=== PATIENT | male | born 1950 | race Caucasian/White ===

== ENCOUNTER 2023-10-07 14:30 | Emergency (ER) | payer MEDICARE, OTHER, SELFPAY ==
[2023-10-07 14:42] VITALS: BP 157/107
[2023-10-07] MEDS: PEPCID 20 MG IV (15:19)
[2023-10-07] MEDS: DECADRON 10 MG IV (15:19)
[2023-10-07] MEDS: BENADRYL 25 MG IV (15:20)
--- NOTE | 2023-10-07 15:30 | ED.GENMED ---
History of Present Illness
General
Chief Complaint: Swelling
Source: patient and family
Time Seen by Provider: 10/07/23 15:01
Travel History
Have you had any contact with someone who has COVID-19?: No
Do you have any symptoms of coronavirus? Fever > 100 degrees, chills, cough, shortness of breath, sore throat, loss of taste or smell, muscle aches, or headache?: No
History of Present Illness
History of Present Illness:
73-year-old male who presents with lip swelling. The patient admits that it started this morning. He states he has been sick over the last few days and yesterday took Tylenol a few times last night and then today. He was wondering if he had
allergic reaction to acetaminophen. The patient states he is on lisinopril. Denies tongue swelling. Denies difficulty swallowing. Denies change in his voice. Patient states that it has been somewhat stable over the last 1 to 2 hours but
progressed through this morning.
Past History
Past History
ED Past Medical History: HTN and Hypercholesterolemia
Social History
Tobacco: Smoker
Phy Exam
Physical Exam
Physical Exam:
CONSTITUTIONAL Patient alert and oriented to person, place and time. Well-appearing. Vital signs reviewed.
HEAD atraumatic, normocephalic.
EYES eyelids normal to inspection, Extraocular muscles intact, Conjunctiva normal, Sclera normal.
ENT swelling of the lips noted, no pharyngeal swelling, no tongue swelling.
NECK normal range of motion, Trachea midline, no jugular venous distention.
RESPIRATORY CHEST No respiratory distress noted, Chest expansion equal, Bilateral breath sounds clear.
CARDIOVASCULAR regular rate and rhythm, Heart sounds normal.
BACK normal inspection, no obvious deformities
UPPER EXTREMITY range of motion normal, Motor strength normal, no cyanosis, no edema.
LOWER EXTREMITY range of motion normal, Motor strength normal, no cyanosis, no edema.
NEURO Speech normal, No focal motor deficits, Azam coma scale 15, Memory normal, Cranial Nerves intact to screening exam.
SKIN skin warm, dry, and normal in color.
PSYCHIATRIC patient oriented to person place and time, Normal affect.
Scores
Heart Failure Risk
Heart Failure Risk Score: Not Applicable
Course
Orders/Labs/Results
Orders:
Orders
10/07/23 15:11
Dexamethasone Sod Phosphate [Decadron] 10 mg IV NOW STA
Diphenhydramine [Benadryl] 25 mg IV NOW STA
Famotidine [Pepcid] 20 mg IV NOW STA
Vital Signs
Initial and Last Documented VS:
Initial Vital Signs
Temp Pulse Resp BP Pulse Ox
99.2 F 98 18 157/107 97
10/07/23 14:42 10/07/23 14:42 10/07/23 14:42 10/07/23 14:42 10/07/23 14:42
Last Documented Vital Signs
Temp Pulse Resp BP Pulse Ox
99.2 F 89 16 132/85 98
10/07/23 14:42 10/07/23 19:37 10/07/23 19:37 10/07/23 19:38 10/07/23 19:38
MDM/Problems Addressed
MDM/Problems Addressed:
Angioedema
*Pulse Oximetry
Patient hypoxic: no
*Critical Care Note
Total Time (30-74mins, 75-104mins- exclusive of procedures): 35 minutes
Data Reviewed
Source: patient and family
Patient Management
Escalation/DeEscalation of care consider admission/obs:
Patient reassessed several times. Much improved on reevaluation. Patient would like to go home and agrees to return for any progressive symptoms.
ED Attending Note
-
Portions of this chart may have been created with voice recognition software.� Occasional wrong word or��sound alike� substitutions may have occurred due to the inherent limitations of voice recognition software.
Discharge Plan
Departure
Patient Disposition: Home (Routine Discharge)
Date of Disposition: 10/07/23
Time of Disposition: 19:43
Patient with high blood pressure during this ER visit?: No
Discharge Problem:
Angioedema
Instructions: Angioedema
Prescriptions:
New
prednisone 10 mg Tablet
See Rx Instructions .ROUTE .COMPLEX Qty: 30 0RF
Rx Instructions:
Take By Mouth:
40 mg daily x3 days, 30 mg daily x3 days,
20 mg daily x3 days, 10 mg daily x3 days.
Referrals:
Alo Levy, [Family Provider] -
Activity Restrictions/Additional Instructions:
Please stop your lisinopril. Return immediately for increased swelling, tongue swelling, difficulty swallowing or any other concerns. Please see your doctor in the next 48 hours for follow-up and reevaluation
Interventions
Interventions:
*Risk Screen - Suicide Last Done: 10/07/23 15:26
*General Assessment Last Done: 10/07/23 14:42
*Neglect/Abuse Screening Last Done: 10/07/23 15:26
ED- Fall Risk Assessment Last Done: 10/07/23 15:26
*ED COVID-19 Vaccine History Last Done: 10/07/23 14:42
*Nursing Disposition Last Done: 10/07/23 19:46
ED- Cardiac Assessment Last Done: 10/07/23 15:26
ED- Pulmonary Assessment Last Done: 10/07/23 15:26
ED-Skin Assessment Last Done: 10/07/23 15:26
Discharge Date and Time
Discharge Date/Time: 10/07/23 19:46
Print Language: BOLIVIAN
[2023-10-07 15:52] VITALS: BP 138/78
[2023-10-07 17:56] VITALS: BP 122/74
[2023-10-07 19:37] VITALS: BP 118/69
[2023-10-07 19:38] VITALS: BP 132/85
== END 2023-10-07 19:46 | disposition home or self-care (01) ==
LOC: EMR 14:30
PROVIDERS: EMERGENCY PHYSICIAN Emergency Medicine; FAMILY PHYSICIAN Family Medicine
DX: T78.3XXA Angioneurotic edema, initial encounter (principal); X58.XXXA Exposure to other specified factors, initial encounter; I10 Essential (primary) hypertension; E78.00 Pure hypercholesterolemia, unspecified; F17.200 Nicotine dependence, unspecified, uncomplicated
CPT/HCPCS: 99282; 96374; 96375

== ENCOUNTER → 2024-02-13 06:36 | Day surgery (SDC) | payer MEDICARE, OTHER, SELFPAY | LOC: GI 06:36 | PROVIDERS: ATTENDING PHYSICIAN Internal Medicine Gastroenterology; FAMILY PHYSICIAN Family Medicine | DX: Z12.11 Encounter for screening for malignant neoplasm of colon (principal); D12.3 Benign neoplasm of transverse colon; K62.1 Rectal polyp; K57.30 Diverticulosis of large intestine without perforation or abscess without bleeding; K64.8 Other hemorrhoids; K31.89 Other diseases of stomach and duodenum; K44.9 Diaphragmatic hernia without obstruction or gangrene; R13.10 Dysphagia, unspecified | CPT/HCPCS: 45385; 45380; 46221; 43239; 88305; 88342 ==

== ENCOUNTER 2024-08-27 12:39 | Inpatient (IN) | payer MEDICARE, OTHER, SELFPAY ==
[2024-08-27] VITALS (24 sets, daily range): BP systolic 94–170; BP diastolic 66–96; BMI 24.4; BMI 22.3
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
[2024-08-27 08:57] LABS: % Basophils 0.5 % (0-2); % Eosinophils 0.7 % (0-6); % Immature Granulocytes 0.7 % (0-0.5); % Lymphocytes 15.9 % (20.5-51.1); % Monocytes 12.7 % (1.7-9.3); % Neutrophils 69.5 % (42.2-75.2); Absolute Basophils 0.1 10^3/uL (0-0.2); Absolute Eosinophils 0.1 10^3/uL (0-0.7); Absolute Immature Granulocytes 0.1 10^3/uL (0-0.05); Absolute Lymphocytes 2.5 10^3/uL (1.2-3.4); Absolute Neutrophils 11.1 10^3/uL (1.4-6.5); Hematocrit 36.4 % (39.0-52.0); Hemoglobin 12.5 g/dL (13.0-18.0); Mean Corp Hgb Conc. 34.3 g/dL (33.0-37.0); Mean Corpuscular Hgb 32.8 pg (27.0-31.0); Mean Corpuscular Volume 95.5 fL (80.0-94.0); Mean Platelet Volume 8.3 fL (7.4-10.4); Nucleated Red Blood Cells % 0 % (-); Platelet Count 300 10^3/uL (130-400); Red Blood Cell Count 3.81 10^6/uL (4.70-6.10); Red Cell Dist. Width 13.9 % (11.5-14.5); White Blood Cell Count 15.9 10^3/uL (4.8-10.8)
[2024-08-27 09:08] LABS: ALT (SGPT) 26 U/L (0-50); AST (SGOT) 36 U/L (17-59); Albumin 4.7 g/dl (3.5-5.0); Alkaline Phosphatase 59 U/L (38-126); Blood Urea Nitrogen 15 mg/dl (9-20); Calcium 9.7 mg/dl (8.4-10.2); Carbon Dioxide 27 mmol/L (22-30); Chloride 101 mmol/L (98-107); Estimated Creatinine Clearance 77 ml/min; Glucose 120 mg/dl (70-99); Potassium 3.8 mmol/L (3.5-5.1); Sodium 138 mmol/L (135-145); Total Bilirubin 0.4 mg/dl (0.2-1.3); eGFR > 60.00
[2024-08-27 09:19] LABS: Troponin I < 0.012 ng/ml
[2024-08-27 10:02] LABS: Alcohol None Detected
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
--- NOTE | 2024-08-27 12:15 | CON.INTV ---
Consultation
Consultation Request
Date/Time Consultation Requested: 12:15
Date/Time Consultation Performed: 12:15
Medical History
-
Chief Complaint: Syncope/fainting
History of Present Illness:
Patient is a 74-year-old male with past medical history of hypertension, hypercholesterolemia, GERD, anxiety, prostate hypertrophy, chronic alcoholic who presents to [facility] after being found unresponsive in his car in his neighbors yard.
Per family, last alcoholic drink was 3 days ago. Per family, patient drinks [id number], at least 15 drinks a day of beer. He has no history of DC, seizure, stroke. Patient states that he took his medications this morning. He takes
prophylactic aspirin 81 mg a day.
In the ED, CT head was negative for acute finding. Alcohol level were negative. EKG showed normal sinus rhythm. In the ED, there was raise concern for seizure versus alcohol withdrawal versus CVA. Vitals in the ER were blood pressure 113/71,
pulse of 84, respirations 18, pulse ox 97% on room air and afebrile.
Past medical history�hypertension, hypercholesterolemia, prostate hypertrophy, chronic alcohol use disorder, anxiety, erectile dysfunction
Past surgical history�cyst removal from back
Past Medical History
Past Medical History: Other (See above)
Past Surgical History: Other (See above)
Social History
Tobacco: Smoker
Alcohol: Chronic Alcoholic
Drug: None
Living: Alone
Family History
Family History: Reviewed & Not Pertinent
Allergies / Home Medications
Allergies
Allergy/AdvReac Type Severity Reaction Status Date / Time
No Known Allergies Allergy Unverified 10/07/23 14:46
Home Medications
�Medication �Instructions �Recorded �Confirmed �Last Taken �Type
alprazolam 0.5 mg tablet (Xanax) 0.5 mg PO BIDPRN PRN anxiety 08/27/24 08/27/24 Unknown History
amlodipine 5 mg tablet (Norvasc) 5 mg PO DAILY 08/27/24 08/27/24 Unknown History
aspirin 81 mg tablet,delayed 81 mg PO DAILY 08/27/24 08/27/24 Unknown History
release
atenolol 50 mg tablet 50 mg PO DAILY 08/27/24 08/27/24 Unknown History
finasteride 5 mg tablet 5 mg PO DAILY 08/27/24 08/27/24 Unknown History
omeprazole 40 mg capsule,delayed 40 mg PO DAILY 08/27/24 08/27/24 Unknown History
release
sildenafil 50 mg tablet 100 mg PO DAILYPRN PRN ed 08/27/24 08/27/24 Unknown History
simvastatin 20 mg tablet (Zocor) 20 mg PO DAILY 08/27/24 08/27/24 Unknown History
therapeutic multivitamin 1 tab PO DAILY 08/27/24 08/27/24 Unknown History
Review of Systems
-
Unable to Obtain full review of systems at this time due to: Acuity (Postictal)
History Source: Patient
Constitutional: Fatigue
Vitals / Labs / Diagnostic Testing
Vital Signs
Temp Pulse Resp BP Pulse Ox
98.1 F 84 18 113/71 97
08/27/24 08:34 08/27/24 10:00 08/27/24 08:35 08/27/24 08:33 08/27/24 10:00
Lab Data
08/27/24 08:47
08/27/24 08:47
Diagnostic Testing:
Physical Exam
-
HEENT: Normocephalic, Anicteric and Moist Mucous Membranes
Cardiovascular: S1/S2 and Regular Rhythm
Respiratory: Clear
GI: Soft and Non Distended
Neurology: Awake, Alert and Oriented
Skin: Warm and Dry
General: Comfortable
Assessment
-
74-year-old male with past medical history of hypertension, hypercholesterolemia, prostate hypertrophy and chronic alcohol use currently being managed in the ICU for concern of CVA versus alcohol withdrawal versus seizure.
Last 24 hours:
� Admit to ICU
� Consult neurology
� CT head negative for bleed
� Consider EEG, brain MRI
�White blood cell count 15.9, hemoglobin 12.5, platelet count 300. Sodium 138, potassium 3.8, BUN 15, creatinine 0.9. Glucose 120
#CVA versus alcohol withdrawal versus seizure
#Hyperlipidemia
#Hypertension
#Anxiety
#BPH
#GERD
� Admit to ICU
� N.p.o.
� Consult speech/PT/OT
� Consult neurology
� CT head negative. Alcohol level negative.
� EKG normal sinus rhythm
� Patient given 4 mg of Ativan in ED
� Start patient on MSAS protocol
Full code
Data Reviewed
-
CT Scan: Report reviewed by me and Discussed with Physician
Labs: Labs reviewed by me and Discussed with Physician
Old Records: Reviewed
[2024-08-27] MEDS: ATIVAN 1 MG IV ×2 (12:33→12:37)
[2024-08-27] MEDS: ATIVAN 2 MG IV (12:37)
[2024-08-27] MEDS: PHENOBARBITAL 104 MG IV (13:51)
--- NOTE | 2024-08-27 13:55 | PTCARENOTE ---
Phenobarbital 260 mg IV given per md order. Pt resting. No changes in assessment. Labs sent as ordered
[2024-08-27 13:57] LABS: Creatine Phosphokinase 350 U/L (55-170); Magnesium 2.1 mg/dl (1.6-2.3); Phosphorus 2.9 mg/dl (2.5-4.5)
--- NOTE | 2024-08-27 14:30 | PTCARENOTE ---
Rec'd pt at 1345 resting in bed. Drowsy but arousable. Overall oriented. Still a little foggy as to the events that brought him to the hospital but was able to say that he passed out in his car. Speech is slow but clear. GABRIEL at 2mm. Admits to a
dull frontal headache. MALONEY. Smile is even and tongue is midline. No tremors noted and MSAS is a 1. Skin is pink wm and dry. Respirs are unlabored on RA with sats of 97%. BS are clear. Monitor SR with 1st'avb AR .22-.24 + pulses. No edema. VS as
documented. Denies chest pain. Abd is soft with + BS. Voiding yellow urine in the urinal. Capped ints intact LAC and R forearm. Pt able to help with turning and moving but will fall back to sleep easily. Call jamison in reach and family at the bedside
and updated on plan of care. Labs and UDS sent as ordered.
[2024-08-27] MEDS: KEPPRA 1000 MG IV (15:04)
--- NOTE | 2024-08-27 15:05 | PTCARENOTE ---
Keppra 1000mg IV given per mD order
[2024-08-27 15:41] LABS: Amphetamines Negative (Negative); Barbiturates Negative (Negative); Benzodiazepines Positive (Negative); Buprenorphine Negative (Negative); Cocaine Negative (Negative); Marijuana Positive (Negative); Methadone Negative (Negative); Methamphetamines Negative (Negative); Opiates Negative (Negative); Phencyclidine Negative (Negative); Tricyclic Antidepressants Negative (Negative)
[2024-08-27] MEDS: FOLVITE 50.2 MG IV (15:53)
[2024-08-27] MEDS: FOLVITE PO (15:53)
[2024-08-27] MEDS: THIAMINE INJECTION 200 MG IV (15:53)
[2024-08-27 15:55] LABS: Fentanyl, Urine Negative (Negative)
--- NOTE | 2024-08-27 16:29 | PTCARENOTE ---
Assessment overall is unchanged. Sleepy but easily arousable and overall oriented. Of note. R pupil is miniimally smaller than than the L 1.5 on the R , 2mm on the L. MALONEY. Denies dizziness or increase in headache. Speech is clear. Upper lip is sl
swollen. Lungs are clear. Family at the bedside. Folvite 1mg IV given as will keep pt NPO per speech. Call jamison in reach. updated
[2024-08-27 16:54] LABS: Magnesium 2.2 mg/dl (1.6-2.3)
[2024-08-27 17:15] LABS: Urine Albumin 2+ (Neg - Trace); Urine Bilirubin Negative (Negative); Urine Character Clear (Clear); Urine Color Yellow; Urine Glucose Negative (Negative); Urine Ketone Negative (Negative); Urine Leukocyte 1+ (Negative); Urine Nitrite Negative (Negative); Urine Occult Blood 1+ (Negative); Urine Urobilinogen Negative (Neg - 1+); Urine pH 6.5 (5.0-9.0)
[2024-08-27] MEDS: LOVENOX 40 MG SC (17:34)
[2024-08-27 17:40] LABS: Urine Squamous Cell 0-2 /LPF (Few)
[2024-08-27 17:41] LABS: Urine Bacteria Few (Negative); Urine Red Blood Cell 0-2 /HPF (0-2)
--- NOTE | 2024-08-27 18:20 | PTCARENOTE ---
Dozing unless disturbed. Does easily awaken and is appropriate. No changes in assessment. UA sent earlier. No complaints
[2024-08-27 18:30] LABS: Glucose - Point of Care 93 mg/dl (70-99)
[2024-08-27 18:32] LABS: TSH Reflex To Free T4 0.62 uIU/ml (0.47-4.68)
[2024-08-27 19:07] LABS: Folate > 20.0 ng/ml (2.76-20); Vitamin B12 939 pg/ml (239-931)
--- NOTE | 2024-08-27 19:25 | PTCARENOTE ---
Pt received start of shift, HR SR w/ 1st degree AVB on telemetry. Pt AAOx3. Drowsy, but easily aroused. Neuro intact, no deficits. MSAS 0. RA, SpO2 96%. Updated pt on plan of care, pt verbalizes understanding.
[2024-08-27] MEDS: KEPPRA 500 MG IV (20:02)
[2024-08-27] MEDS: PHENOBARBITAL 97.5 MG IV (21:30)
[2024-08-28] VITALS (18 sets, daily range): BP systolic 84–130; BP diastolic 66–92; BMI 22.3; BMI 22.4
[2024-08-28] MEDS: THIAMINE INJECTION 200 MG IV ×4 (00:02→23:34)
--- NOTE | 2024-08-28 01:53 | PTCARENOTE ---
Pt continues to be drowsy but easily aroused. Neuro remains intact. MSAS 0. Pleasant demeanor, cooperative
[2024-08-28 03:22] LABS: % Basophils 0.5 % (0-2); % Eosinophils 1.6 % (0-6); % Immature Granulocytes 0.3 % (0-0.5); % Lymphocytes 28.4 % (20.5-51.1); % Monocytes 9.4 % (1.7-9.3); % Neutrophils 59.8 % (42.2-75.2); Absolute Basophils 0.1 10^3/uL (0-0.2); Absolute Eosinophils 0.2 10^3/uL (0-0.7); Absolute Lymphocytes 3.4 10^3/uL (1.2-3.4); Absolute Monocytes 1.1 10^3/uL (0.1-0.6); Absolute Neutrophils 7.1 10^3/uL (1.4-6.5); Hematocrit 36.4 % (39.0-52.0); Hemoglobin 12.5 g/dL (13.0-18.0); Mean Corp Hgb Conc. 34.3 g/dL (33.0-37.0); Mean Corpuscular Hgb 32.7 pg (27.0-31.0); Mean Corpuscular Volume 95.3 fL (80.0-94.0); Nucleated Red Blood Cells % 0 % (-); Platelet Count 257 10^3/uL (130-400); Red Blood Cell Count 3.82 10^6/uL (4.70-6.10); Red Cell Dist. Width 13.8 % (11.5-14.5); White Blood Cell Count 11.9 10^3/uL (4.8-10.8)
[2024-08-28 03:43] LABS: ALT (SGPT) 24 U/L (0-50); AST (SGOT) 40 U/L (17-59); Albumin 4.5 g/dl (3.5-5.0); Alkaline Phosphatase 63 U/L (38-126); Blood Urea Nitrogen 14 mg/dl (9-20); Calcium 9.2 mg/dl (8.4-10.2); Carbon Dioxide 25 mmol/L (22-30); Chloride 102 mmol/L (98-107); Estimated Creatinine Clearance 83 ml/min; Glucose 85 mg/dl (70-99); Magnesium 2.4 mg/dl (1.6-2.3); Sodium 136 mmol/L (135-145); Total Bilirubin 0.8 mg/dl (0.2-1.3); Total Protein 6.9 g/dl (6.3-8.2); eGFR > 60.00
[2024-08-28 03:53] LABS: Creatine Phosphokinase 701 U/L (55-170)
[2024-08-28] MEDS: KEPPRA 500 MG IV ×2 (08:04→19:58)
[2024-08-28] MEDS: PHENOBARBITAL 97.5 MG IV ×3 (08:05→23:34)
--- NOTE | 2024-08-28 08:21 | W.PN.INTV ---
Today's Communication / Plan
Recommendations
EEG today
Assessment
-
74-year-old male with past medical history of hypertension, hypercholesterolemia, prostate hypertrophy and chronic alcohol use currently being managed in the ICU for concern of CVA versus alcohol withdrawal versus seizure.
Last 24 hours:
� Admit to ICU
� EEG today
� CT head negative for bleed. MRI brain pending
� U tox positive for benzodiazepines and marijuana. Patient takes Xanax at home for anxiety
�White blood cell count 11.9, hemoglobin 12.5, platelet count 300. Sodium 136, potassium 4, BUN 14, creatinine 0.8. Glucose 93
#CVA versus alcohol withdrawal versus seizure
#Hyperlipidemia
#Hypertension
#Anxiety
#BPH
#GERD
� Admit to ICU
� N.p.o.
� Consult speech/PT/OT
� Neurology on board, appreciate input
� CT head negative. Alcohol level negative.
� EKG normal sinus rhythm
� Patient given 4 mg of Ativan in ED
� Start patient on MSAS protocol
�Patient started on Keppra
� Brain MRI pending
� EEG today
� Repeat electrolytes as needed.
�U tox positive for benzodiazepines and marijuana patient takes Xanax at home for his anxiety
Full code
Subjective Dataa
Subjective Data
Date of Service:
Date of Service: August 28, 2024
Patient reports no acute events overnight. He states that he does not remember parts of yesterday. He feels 'more like himself 'and acknowledges that he was drinking significantly leading up to the episode. Patient has no headaches, nausea,
vomiting, chest pain, shortness of breath, abdominal pain or numbness and tingling. He is resting comfortably in bed, about to undergo EEG testing
Vitals today 109/74, pulse 62, respirations 16, afebrile saturating 96% on on room air.
Chief Complaint: Felter Tennis Balls Follow Up
Review of Systems
Neuro: Other (Seizure)
Objective Data
Data Reviewed
Vital Signs / I&O / Oxygen:
Vital Signs
Temp Pulse Resp BP Pulse Ox
97.5 F 62 16 109/74 96
08/28/24 03:37 08/28/24 06:45 08/28/24 06:45 08/28/24 06:00 08/28/24 06:45
Intake and Output
08/27/24 08/28/24 08/29/24
06:59 06:59 06:59
Intake Total 150 / 150
Output Total 600 / 600
Balance -450 / -450
SaO2 96
Physical Exam
General: Comfortable
HEENT: Normocephalic and Anicteric
Cardiovascular: S1-S2 and Regular Rhythm
Respiratory: Clear
GI: Soft and Non Distended
Neurology: AO x 3
Skin: Warm and Dry
Labs/Micro/Reports
Lab Data
08/28/24 03:14
08/28/24 03:14
--- NOTE | 2024-08-28 08:55 | PTCARENOTE ---
pt received from previous rn- aox3, knows month and says year is 2023- reoriented to correct year. pt repositions and turns self. eeg completed at bedside. pt educated about plan of care- verbalized understanding. nsr with 1st degree on monitor, on
room air. no complaints at this time. all safety precautions in place, call jamison within reach, demonstrated proper use.
[2024-08-28] MEDS: PROTONIX 40 MG PO (09:15)
[2024-08-28] MEDS: THERAGRAN 1 TABLET PO (09:15)
[2024-08-28] MEDS: FOLVITE 1 MG PO (09:15)
[2024-08-28] MEDS: ASPIR LOW (ENTERIC COATED) 81 MG PO (09:15)
[2024-08-28] MEDS: LIPITOR 10 MG PO (09:15)
[2024-08-28] MEDS: TENORMIN 50 MG PO (09:15)
[2024-08-28] MEDS: PROSCAR 5 MG PO (09:16)
--- NOTE | 2024-08-28 09:38 | W.PN.NEURO.1 ---
Today's Communication / Plan
-
.
Subjective/Objective
Subjective Data
Date of Service: August 28, 2024
Neurology follow-up note.
History Black reports no complaints. No recurrent seizures.
Routine EEG (08/28/2024)�normal.
Brain MRI is pending.
MAR: Phenobarbital 97.5
Labs: CK�701, urine tox�positive for THC, UA culture�pending
PMH: HTN, DLP, GERD, IBS, CARLOS, alcohol use disorder, ED, BPH, elevated PSA
PSH: hemorrhoidal banding
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
FH: Noncontributory.
All: Lisinopril
ROS: Negative for headache, chest pain, shortness of breath, positive for confusion.
General: Well developed. In no acute distress.
Cardio: Regular rate and rhythm without murmur. Extremities are without cyanosis or edema.
Neuro:
Mental Status: Alert, oriented to name, month, did not know the year. Impaired attention and preserved comprehension. Nonfluent.
Cranial Nerves: Pupils are equally round and reactive to light. EOMs full. Visual pemberton full to confrontation. No ptosis. No nystagmus. V1-V3 intact to light touch and pinprick bilaterally, symmetric. Face symmetric. Normal hearing AU. The
palate elevated well. SCMs and traps 5/5. Tongue midline. No dysarthria.
Motor: Normal bulk and tone. No pronator or arm drift. Strength 5/5 throughout. No clonus.
Reflexes: 2+ throughout the upper extremities and knees. Plantar responses flexor bilaterally.
Sensory: Absent vibration at the toes and reduced at the ankles.
Coordination: No dysmetria or tremor.
Gait: deferred
Assessment and Plan:
I. Acute symptomatic seizures from alcohol cessation
II. Encephalopathy (toxic, neurodegenerative?)
III. Alcohol use disorder
-Seizure precautions
-Brain MRI without carlos
-Continue Keppra 500 mg twice daily
-Ativan 2 mg as needed
-Will follow
I personally reviewed all radiology and labs along with past medical records pertinent to current medical problems. Total time spent in patient care is 36 minutes.
Thank you for allowing us to participate in the care of this patient. We will continue to follow. Please do not hesitate to contact us with any questions or concerns.
Objective Data
Vital Signs
Temp Pulse Resp BP Pulse Ox
36.6 C 72 15 117/87 94
08/28/24 08:31 08/28/24 09:15 08/28/24 08:00 08/28/24 09:15 08/28/24 08:00
Lab Results
08/28/24 03:14
08/28/24 03:14
Sodium 136 mmol/L (135-145) 08/28/24 03:14
Potassium 4.0 mmol/L (3.5-5.1) 08/28/24 03:14
BUN 14 mg/dl (9-20) 08/28/24 03:14
Glucose 85 mg/dl (70-99) 08/28/24 03:14
Calcium 9.2 mg/dl (8.4-10.2) 08/28/24 03:14
Phosphorus 2.9 mg/dl (2.5-4.5) 08/27/24 13:21
Vitamin B12 939 pg/ml (239-931) H 08/27/24 16:05
Ur Buprenorphine Negative (Negative) 08/27/24 13:44
Patient Allergies
No Known Allergies Allergy (Unverified 10/07/23 14:46)
Vital Signs and Labs
-
Vital Signs and Labs:
Vital Signs
Temp Pulse Resp BP Pulse Ox
36.6 C 72 15 117/87 94
08/28/24 08:31 08/28/24 09:15 08/28/24 08:00 08/28/24 09:15 08/28/24 08:00
Lab Results
08/28/24 03:14
08/28/24 03:14
Sodium 136 mmol/L (135-145) 08/28/24 03:14
Potassium 4.0 mmol/L (3.5-5.1) 08/28/24 03:14
BUN 14 mg/dl (9-20) 08/28/24 03:14
Glucose 85 mg/dl (70-99) 08/28/24 03:14
Calcium 9.2 mg/dl (8.4-10.2) 08/28/24 03:14
Phosphorus 2.9 mg/dl (2.5-4.5) 08/27/24 13:21
Vitamin B12 939 pg/ml (239-931) H 08/27/24 16:05
Ur Buprenorphine Negative (Negative) 08/27/24 13:44
Medications
-
Medications:
Generic Name Dose Route Start Last Admin
Trade Name Freq PRN Reason Stop Dose Admin
Aspirin 81 mg 08/28/24 08:00 08/28/24 09:15
Aspirin 81 Mg (Enteric Coated) Tablet PO 09/25/24 07:59 81 mg
DAILY FOREIGN Administration
Atenolol 50 mg 08/28/24 08:00 08/28/24 09:15
Atenolol 50 Mg Tablet PO 09/25/24 07:59 50 mg
DAILY FOREIGN Administration
Atorvastatin Calcium 10 mg 08/28/24 08:00 08/28/24 09:15
Atorvastatin (Lipitor) 10 Mg Tablet PO 09/25/24 07:59 10 mg
DAILY FOREIGN Administration
Bisacodyl 10 mg 08/27/24 13:13
Bisacodyl 10 Mg Rectal Suppository RECTAL 09/24/24 13:12
[id number] PRN
constipation
Enoxaparin Sodium 40 mg 08/27/24 18:00 08/27/24 17:34
Enoxaparin Sodium 40 Mg/0.4 Ml Syringe SC 09/24/24 17:59 40 mg
QPM FOREIGN Administration
Finasteride 5 mg 08/28/24 08:00 08/28/24 09:16
Finasteride 5 Mg Tablet PO 09/25/24 07:59 5 mg
DAILY FOREIGN Administration
Folic Acid 1 mg 08/27/24 13:13 08/28/24 09:15
Folic Acid 1 Mg Tablet PO 09/24/24 13:12 1 mg
DAILY FOREIGN Administration
Folic Acid 1 mg/ Sodium 50.2 mls @ 200.8 mls/hr 08/27/24 13:13 08/27/24 15:53
Chloride IV 09/24/24 13:12 50.2 mls
DAILYPRN PRN Administration
if NPO
Levetiracetam 500 mg 08/27/24 20:00 08/28/24 08:04
Levetiracetam (100 Mg/Ml) 500 Mg/5 Ml Vial IV 09/24/24 19:59 500 mg
Q12 FOREIGN Administration
Lorazepam 1 mg 08/27/24 13:13
Lorazepam 1 Mg Tablet PO 09/24/24 13:12
Q2HPRN PRN
MSAS 5-7
Lorazepam 1 mg 08/27/24 13:13
Lorazepam 2 Mg/Ml Vial IV 09/24/24 13:12
Q1HPRN PRN
MSAS 8-11
Lorazepam 2 mg 08/27/24 13:13
Lorazepam 2 Mg/Ml Vial IV 09/24/24 13:12
Q1HPRN PRN
MSAS > 11
Multivitamins Therapeutic 1 tablet 08/28/24 08:00 08/28/24 09:15
Multivitamin Tablet PO 09/25/24 07:59 1 tablet
DAILY FOREIGN Administration
Pantoprazole Sodium 40 mg 08/28/24 08:00 08/28/24 09:15
Pantoprazole 40 Mg Delayed Release Tablet PO 09/25/24 07:59 40 mg
DAILY FOREIGN Administration
Phenobarbital Sodium 64.8 mg 08/29/24 22:00
Phenobarbital 32.4 Mg Tablet PO 08/31/24 16:01
TID FOREIGN
Phenobarbital Sodium 32.4 mg 08/31/24 22:00
Phenobarbital 32.4 Mg Tablet PO 09/02/24 16:01
TID FOREIGN
Phenobarbital Sodium 97.5 mg 08/27/24 22:00 08/28/24 08:05
Phenobarbital (65 Mg/Ml) 1 Ml Vial IV 08/29/24 16:01 97.5 mg
TID FOREIGN Administration
Polyethylene Glycol 17 grams 08/27/24 13:13
Polyethylene Glycol Powder 17 Grams Packet PO 09/24/24 13:12
DAILYPRN PRN
constipation
Senna/Docusate Sodium 1 tablet 08/27/24 13:13
Docusate W/Senna (Mehnaz-Colace) Tablet PO 09/24/24 13:12
BIDPRN PRN
constipation
Sodium Chloride 0 ml 08/27/24 13:13
Sodium Chloride 0.9% (Preservative Free) 10 Ml Vial IV 09/24/24 13:12
PRN PRN
To dilute IV Ativan
Protocol
Sodium Chloride 0 flush 08/27/24 14:00
Sodium Chloride 0.9% (Flush) Syringe IV 09/24/24 13:59
PER PROTOCOL FOREIGN
Thiamine HCl 200 mg 08/27/24 16:00 08/28/24 08:04
Thiamine (100 Mg/Ml) 2 Ml Vial IV 08/30/24 08:01 200 mg
Q8 FOREIGN Administration
Thiamine HCl 100 mg 08/30/24 20:00
Thiamine 100 Mg Tablet PO 09/27/24 19:59
BID FOREIGN
Home Medications
-
Home Medications
alprazolam 0.5 mg tablet (Xanax) 0.5 mg PO BIDPRN PRN anxiety 08/27/24
amlodipine 5 mg tablet (Norvasc) 5 mg PO DAILY 08/27/24
aspirin 81 mg tablet,delayed release 81 mg PO DAILY 08/27/24
atenolol 50 mg tablet 50 mg PO DAILY 08/27/24
finasteride 5 mg tablet 5 mg PO DAILY 08/27/24
omeprazole 40 mg capsule,delayed release 40 mg PO DAILY 08/27/24
sildenafil 50 mg tablet 100 mg PO DAILYPRN PRN ed 08/27/24
simvastatin 20 mg tablet (Zocor) 20 mg PO DAILY 08/27/24
therapeutic multivitamin 1 tab PO DAILY 08/27/24
--- NOTE | 2024-08-28 09:56 | PTOTSP ---
Dysphagia Evaluation
Oral/pharyngeal swallowing within functional limits at time of clinical bedside swallowing evaluation while patient awake/alert/calm. Patient may be at risk for fluctuations in dysphagia given alcohol withdrawal.
Recommend:
1. Regular, Thin Liquids
2. Medications as best tolerated
3. Oral care 3x daily
4. General aspiration and reflux precautions
5. Will follow up for speech/language/cognitive evaluation pending results of MRI of Brain.
--- NOTE | 2024-08-28 10:30 | EEGC.RPT ---
Continuous EEG Report
Recording
Start Date of Data Reviewed: 08/28/24
Done with Video Recording: Yes
Electrocardiogram: Unremarkable
Report
TECHNICAL REMARKS: This is a technically satisfactory eighteen channel record employing 21 disc electrodes applied according to a measured international 10-20 electrode placement system. There were no significant technical difficulties. The study
was done on a BCKSTGR System.
CLINICAL HISTORY: This is a 74-year-old man with recurrent seizures. This study was requested to look for epileptiform abnormalities.
MEDICATION: Keppra, phenobarbital
STUDY DURATION: 27 min, 1 sec
REPORT: At the onset of the EEG, the patient is awake. The background activity consists of 9.5-10-11 Hz, persistent, posteriorly dominant, moderate amplitude, symmetric and rhythmic activity that is reactive to eye-opening. Anteriorly, it consists
of a mixture of low voltage indeterminate activity and 20-25 Hz, persistent, low amplitude, symmetric and rhythmic activity. Stepwise intermittent photic stimulation (1-31 Hz) does not induce any abnormalities. Hyperventilation was not performed.
Drowsiness is characterized by low amplitude mixed frequency activity, decreased eye blinking, and muscle artifact. N2 sleep was reached
IMPRESSION: This is a normal awake and sleep EEG. There is no evidence of focal slowing or epileptiform activity. A normal EEG does not rule out epilepsy. If the clinical picture warrants, a sleep-deprived awake and sleep record may be helpful.
--- NOTE | 2024-08-28 11:05 | PTCARENOTE ---
pt off floor at 1040 with supercharge repair supervisor for mri, daughter at bedside and updated
--- NOTE | 2024-08-28 11:35 | CM ---
CM following re: discharge planning.
Reviewed pt's chart, met with pt and pt's daughter at bedside. Pt allowed her daughter to be presented in the interview.
Pt is a 74 year old male, admitted with primary dx of Acute symptomatic seizures from alcohol cessation. Encephalopathy, Alcohol use disorder.
Pt reports he lives with spouse 2SH, 2 steps to enter, has 3 supportive children and helping babysitting grandchildren. 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 No DME, VN or SNF history.
Pt admitted to h/o alcohol abuse, drink of choice - beer and per pt he can drink heavily at some days and not drinking at all when chooses. Pt expressed his agreement to meet with [facility] team for more information regarding D&A treatment options. A
referral to [facility] made.
PCP: Alo Levy
Pharmacy: [facility]
D/C plan: Inpatient vs outpatient D&A treatment programs. [facility] following.
CM will follow with discharge plan updates as hospitalization progresses
--- NOTE | 2024-08-28 12:32 | PTCARENOTE ---
assessment unchanged, pt oob to chair. neuro checks d/c per Dr. Barros.
--- NOTE | 2024-08-28 14:34 | W.PN.HOSP.TC ---
Today's Communication/Plan
-
See plan
Assessment / Plan
Assessment / Plan
Physical Exam
General: No Apparent Distress, Comfortable and Conversant
HEENT: Normocephalic and Moist mucous membranes
Respiratory: Clear
Cardiac: S1/S2 and Regular Rhythm
GI: Soft, Non Tender and Normal Bowel Sounds
Musculoskeletal: No Cyanosis and No Edema
Skin: Warm and Dry
Neuro: Awake, Alert, Oriented, AO x 3, No Motor Deficits, Nonfocal/grossly intact, Cranial Nerves Intact and No Sensory Deficits
Psych: Calm and Intact Judgment/Insight
Assessment/Plan
Presentation with Unresponsiveness/Eye Staring/Head Shaking Likely Secondary to Alcohol Withdrawal Seizures
Seizures -- one here in the emergency department and one suspected one prior to arrival
Suspected Delirium Tremens
-Suspected alcohol withdrawal seizure
-Ativan 4 mg given in the emergency department with good response, repeat every 15 to 20 minutes as needed
-Intravenous Phenobarbital taper regimen ordered
-ICU admission given high risk of needing intubation --> today is doing better and stable, okay for transfer to telemetry as discussed with production technician
-Neurology consulted given 2nd suspected second episode of seizure on day of presentation, to check for any other possible etiology
-MRI brain with no acute changes or significant abnormalities
-EEG normal
-Per neurology, continue Keppra 500 mg twice daily and Ativan 2 mg as needed
-Patient says he takes Xanax everyday
Alcohol Use Disorder
-Patient drinks alcohol heavily, multiple cans of beer, and his last drink was 2-3 days ago
-Continue alcohol withdrawal protocol
-Thiamine
-Folic Acid
-Continue multivitamin
Leukocytosis - IMPROVED
-Possibly stress reaction from seizure
-No clear sign of infection, although patient's family reports that patient's grandchildren have had viral illness/cold lately, and they said that patient has had recent abdominal upset and diarrhea
History of Allergic Reaction to Lisinopril
Mild Rhabdomyolysis
-CK 350 --> 701
-Normal Saline IV fluids @ 100 cc/hr x1 bag
Hypertension
-Hold Amlodipine for now given blood pressure okay and patient is getting sedating meds
Hyperlipidemia
-Hold home statin for now, elevated CK
Prostate Hypertrophy
-Hold home Finasteride for now
-Bladder Scans
DVT Prophylaxis: Lovenox and SCDs
Code Status: Full Code
Alcohol withdrawal with concern for Delirium Tremens is a high-risk encounter.
Anticipated Discharge: > 48 hours
Subjective/Interval History
-
Date of Service: August 28, 2024
Patient was seen and examined. He was awake and alert and denied any symptoms or complaints.
Objective Data
-
Labs:
Laboratory Results
08/28/24
03:14
WBC 11.9 H
Hgb 12.5 L
Hct 36.4 L
Plt Count 257
Sodium 136
Potassium 4.0
Chloride 102
Carbon Dioxide 25
BUN 14
Creatinine 0.8
Glucose 85
Calcium 9.2
Total Bilirubin 0.8
AST 40
ALT 24
Alkaline Phosphatase 63
Vital Signs:
Vital Signs
Temp Pulse Resp BP Pulse Ox
97.9 F 66 17 107/79 97
08/28/24 08:31 08/28/24 13:00 08/28/24 13:00 08/28/24 13:00 08/28/24 10:00
I&O
08/27/24 08/28/24 08/29/24
06:59 06:59 06:59
Intake Total 150 / 150
Output Total 600 / 600
Balance -450 / -450
[2024-08-28] MEDS: NSS 1000 IV (15:12)
[2024-08-28] MEDS: AUGMENTIN 875 MG/125 MG 1 TABLET PO (17:03)
[2024-08-28] MEDS: NICODERM TRANSDERMAL 14 MG TRANSDERM (17:03)
[2024-08-28] MEDS: LOVENOX 40 MG SC (17:04)
--- NOTE | 2024-08-28 17:22 | PTCARENOTE ---
08/28- Patient transferred and oriented to unit without issue. AAOX3; telemetry #47, currently NSR. Patient denies any current needs as well.
[2024-08-28 18:39] LABS: B.E. 1.1 mmol/L; HCO3 25.1 mmol/L (21-28); O2 Saturation % 98.4 % (94-98); PCO2 37 mmHg (35-48); PO2 79 mmHg (83-108); pH 7.44 (7.35-7.45)
[2024-08-28 20:28] LABS: Ammonia < 9 umol/L (9-30)
[2024-08-29 03:30] VITALS: BP 130/75
[2024-08-29 07:00] VITALS: BP 130/77
--- NOTE | 2024-08-29 07:24 | W.PN.HOSP.TC ---
Today's Communication/Plan
-
Seizures this hospitalization
Continue phenobarbital taper for severe alcohol withdrawal
Assessment / Plan
Assessment / Plan
Physical Exam
General: No Apparent Distress, Comfortable and Conversant
HEENT: Normocephalic and Moist mucous membranes
Respiratory: Clear
Cardiac: S1/S2 and Regular Rhythm
GI: Soft, Non Tender and Normal Bowel Sounds
Musculoskeletal: No Cyanosis and No Edema
Skin: Warm and Dry
Neuro: Awake, Alert, Oriented, AO x 3, No Motor Deficits, Nonfocal/grossly intact, Cranial Nerves Intact and No Sensory Deficits
Psych: Calm and Intact Judgment/Insight
Assessment/Plan
Presentation with Unresponsiveness/Eye Staring/Head Shaking Likely Secondary to Alcohol Withdrawal Seizures
Seizures -- one here in the emergency department and one suspected one prior to arrival
Suspected Delirium Tremens
-Suspected alcohol withdrawal seizure
-Ativan 4 mg given in the emergency department with good response, repeat every 15 to 20 minutes as needed
-Intravenous Phenobarbital taper regimen ordered -- continue
-Initially, ICU admission given high risk of needing intubation --> then did better and was stable for transfer to telemetry as discussed with program manager
-Neurology consulted given 2nd suspected second episode of seizure on day of presentation, to check for any other possible etiology
-MRI brain with no acute changes or significant abnormalities
-EEG normal
-Per neurology, continue Keppra 500 mg twice daily and Ativan 2 mg as needed
-Patient says he takes Xanax everyday
Alcohol Use Disorder
-Patient drinks alcohol heavily, multiple cans of beer, and his last drink was 2-3 days ago
-Continue alcohol withdrawal protocol
-Thiamine
-Folic Acid
-Continue multivitamin
Leukocytosis - RESOLVED
-Possibly stress reaction from seizure
-No clear sign of infection, although patient's family reports that patient's grandchildren have had viral illness/cold lately, and they said that patient has had recent abdominal upset and diarrhea
History of Allergic Reaction to Lisinopril
Mild Rhabdomyolysis
-CK 350 --> 701 --> 391
-Normal Saline IV fluids @ 100 cc/hr x1 bag given
Hypertension
-Hold Amlodipine for now given blood pressure okay and patient is getting sedating meds
Hyperlipidemia
-Hold home statin for now, elevated CK
Prostate Hypertrophy
-Hold home Finasteride for now
-Bladder Scans
DVT Prophylaxis: Lovenox and SCDs
Code Status: Full Code
Alcohol withdrawal with concern for Delirium Tremens is a high-risk encounter.
Anticipated Discharge: > 48 hours
Subjective/Interval History
-
Date of Service: August 29, 2024
Patient was seen and examined. He denied any complaints.
Objective Data
-
Labs:
Laboratory Results
08/29/24
06:12
WBC Pending
Hgb Pending
Hct Pending
Plt Count Pending
Sodium Pending
Potassium Pending
Chloride Pending
Carbon Dioxide Pending
BUN Pending
Creatinine Pending
Glucose Pending
Calcium Pending
Total Bilirubin Pending
AST Pending
ALT Pending
Alkaline Phosphatase Pending
Vital Signs:
Vital Signs
Temp Pulse Resp BP Pulse Ox
97.5 F 76 18 130/75 97
08/29/24 03:30 08/29/24 03:30 08/29/24 03:30 08/29/24 03:30 08/29/24 03:30
I&O
08/28/24 08/29/24 08/30/24
06:59 06:59 06:59
Intake Total 150 / 150 1000 / 1000
Output Total 600 / 600 450 / 450
Balance -450 / -450 550 / 550
[2024-08-29 07:37] LABS: % Basophils 0.5 % (0-2); % Immature Granulocytes 0.3 % (0-0.5); % Lymphocytes 25.5 % (20.5-51.1); % Monocytes 11.3 % (1.7-9.3); % Neutrophils 60.4 % (42.2-75.2); Absolute Basophils 0.1 10^3/uL (0-0.2); Absolute Eosinophils 0.2 10^3/uL (0-0.7); Absolute Lymphocytes 2.4 10^3/uL (1.2-3.4); Absolute Monocytes 1.1 10^3/uL (0.1-0.6); Absolute Neutrophils 5.7 10^3/uL (1.4-6.5); Hematocrit 33.5 % (39.0-52.0); Hemoglobin 11.2 g/dL (13.0-18.0); Mean Corp Hgb Conc. 33.4 g/dL (33.0-37.0); Mean Corpuscular Hgb 31.7 pg (27.0-31.0); Mean Corpuscular Volume 94.9 fL (80.0-94.0); Mean Platelet Volume 8.5 fL (7.4-10.4); Nucleated Red Blood Cells % 0 % (-); Platelet Count 268 10^3/uL (130-400); Red Blood Cell Count 3.53 10^6/uL (4.70-6.10); Red Cell Dist. Width 13.5 % (11.5-14.5); White Blood Cell Count 9.4 10^3/uL (4.8-10.8)
[2024-08-29] MEDS: NICODERM TRANSDERMAL 14 MG TRANSDERM (08:12)
[2024-08-29] MEDS: FOLVITE 1 MG PO (08:13)
[2024-08-29] MEDS: THIAMINE INJECTION 200 MG IV ×2 (08:13→16:43)
[2024-08-29] MEDS: PHENOBARBITAL 97.5 MG IV ×2 (08:13→16:42)
[2024-08-29] MEDS: TENORMIN 50 MG PO (08:13)
[2024-08-29] MEDS: PROSCAR 5 MG PO (08:14)
[2024-08-29] MEDS: KEPPRA 500 MG IV ×2 (08:14→20:44)
[2024-08-29] MEDS: THERAGRAN 1 TABLET PO (08:14)
[2024-08-29] MEDS: AUGMENTIN 875 MG/125 MG 1 TABLET PO ×2 (08:14→20:43)
[2024-08-29] MEDS: ASPIR LOW (ENTERIC COATED) 81 MG PO (08:15)
[2024-08-29] MEDS: PROTONIX 40 MG PO (08:15)
[2024-08-29] MEDS: LIPITOR 10 MG PO (08:15)
[2024-08-29 08:17] LABS: ALT (SGPT) 18 U/L (0-50); AST (SGOT) 28 U/L (17-59); Albumin 3.4 g/dl (3.5-5.0); Alkaline Phosphatase 57 U/L (38-126); Blood Urea Nitrogen 11 mg/dl (9-20); Calcium 8.7 mg/dl (8.4-10.2); Carbon Dioxide 26 mmol/L (22-30); Chloride 103 mmol/L (98-107); Creatine Phosphokinase 391 U/L (55-170); Estimated Creatinine Clearance 96 ml/min; Glucose 80 mg/dl (70-99); Magnesium 1.8 mg/dl (1.6-2.3); Phosphorus 3.7 mg/dl (2.5-4.5); Potassium 3.9 mmol/L (3.5-5.1); Sodium 134 mmol/L (135-145); Total Bilirubin 0.5 mg/dl (0.2-1.3); Total Protein 5.7 g/dl (6.3-8.2); eGFR > 60.00
[2024-08-29 11:00] VITALS: BP 122/85
[2024-08-29 15:00] VITALS: BP 140/81
[2024-08-29] MEDS: LOVENOX 40 MG SC (17:33)
[2024-08-29 19:39] VITALS: BP 119/74
[2024-08-29] MEDS: LUMINAL 64.8 MG PO (20:43)
[2024-08-29] MEDS: FLUSH (NSS) 1 FLUSH IV (20:44)
[2024-08-29 23:50] VITALS: BP 120/76
[2024-08-30] MEDS: THIAMINE INJECTION 200 MG IV ×2 (00:12→09:20)
[2024-08-30] MEDS: FLUSH (NSS) 1 FLUSH IV ×2 (00:12→20:44)
[2024-08-30 03:27] VITALS: BP 129/83
[2024-08-30 06:00] VITALS: BMI 22.0
[2024-08-30 07:00] VITALS: BP 132/92
[2024-08-30 07:00] LABS: % Basophils 0.7 % (0-2); % Eosinophils 2.3 % (0-6); % Immature Granulocytes 0.3 % (0-0.5); % Lymphocytes 24.6 % (20.5-51.1); % Monocytes 10.9 % (1.7-9.3); % Neutrophils 61.2 % (42.2-75.2); Absolute Basophils 0.1 10^3/uL (0-0.2); Absolute Eosinophils 0.2 10^3/uL (0-0.7); Absolute Lymphocytes 2.2 10^3/uL (1.2-3.4); Absolute Neutrophils 5.4 10^3/uL (1.4-6.5); Hematocrit 35.1 % (39.0-52.0); Hemoglobin 12.2 g/dL (13.0-18.0); Mean Corp Hgb Conc. 34.8 g/dL (33.0-37.0); Mean Corpuscular Hgb 32.5 pg (27.0-31.0); Mean Corpuscular Volume 93.6 fL (80.0-94.0); Mean Platelet Volume 8.3 fL (7.4-10.4); Nucleated Red Blood Cells % 0 % (-); Platelet Count 271 10^3/uL (130-400); Red Blood Cell Count 3.75 10^6/uL (4.70-6.10); Red Cell Dist. Width 13.1 % (11.5-14.5); White Blood Cell Count 8.8 10^3/uL (4.8-10.8)
--- NOTE | 2024-08-30 07:02 | W.PN.HOSP.TC ---
Today's Communication/Plan
-
High Risk Alcohol Withdrawal with Seizures on Presentation
Continue Phenobarbital Taper
Assessment / Plan
Assessment / Plan
Physical Exam
General: No Apparent Distress, Comfortable and Conversant
HEENT: Normocephalic and Moist mucous membranes
Respiratory: Clear
Cardiac: S1/S2 and Regular Rhythm
GI: Soft, Non Tender and Normal Bowel Sounds
Musculoskeletal: No Cyanosis and No Edema
Skin: Warm and Dry
Neuro: Awake, Alert, Oriented, AO x 3, No Motor Deficits, Nonfocal/grossly intact, Cranial Nerves Intact and No Sensory Deficits
Psych: Calm and Intact Judgment/Insight
Assessment/Plan
Presentation with Unresponsiveness/Eye Staring/Head Shaking Likely Secondary to Alcohol Withdrawal Seizures
Seizures -- one here in the emergency department and one suspected one prior to arrival
Suspected Delirium Tremens
Chronic benzodiazepine use
-Suspected alcohol withdrawal seizure
-Ativan 4 mg given in the emergency department with good response, repeat every 15 to 20 minutes as needed
-Intravenous Phenobarbital taper regimen ordered -- continue
-Initially, ICU admission given high risk of needing intubation --> then did better and was stable for transfer to telemetry as discussed with manager advertising
-Neurology consulted given 2nd suspected second episode of seizure on day of presentation, to check for any other possible etiology
-MRI brain with no acute changes or significant abnormalities
-EEG normal
-Per neurology, continue Keppra 500 mg twice daily and Ativan 2 mg as needed
-Patient says he takes Xanax everyday
Alcohol Use Disorder
-Patient drinks alcohol heavily, multiple cans of beer, and his last drink was 2-3 days ago
-Continue alcohol withdrawal protocol
-Thiamine
-Folic Acid
-Multivitamin
RLL aspiration pneumonia
-Continue Augmentin
Leukocytosis - RESOLVED
-Possibly stress reaction from seizure vs. aspiration pneumonia
-No clear sign of infection, although patient's family reports that patient's grandchildren have had viral illness/cold lately, and they said that patient has had recent abdominal upset and diarrhea
Macrocytic Anemia
-Suspected from alcohol use
-Vitamin B12 level high
History of Allergic Reaction to Lisinopril
Mild Rhabdomyolysis due to seizures
-CK 350 --> 701 --> 391
-Normal Saline IV fluids previously given
Hypertension
-Hold Amlodipine for now given blood pressure okay and patient is getting sedating meds
Hyperlipidemia
-Hold home statin for now, elevated CK
Benign Prostatic Hypertrophy
-Hold home Finasteride for now
-Bladder Scans
DVT Prophylaxis: Lovenox and SCDs
Code Status: Full Code
Alcohol withdrawal with concern for Delirium Tremens is a high-risk encounter.
Anticipated Discharge: > 48 hours
Subjective/Interval History
-
Date of Service: August 30, 2024
Patient was seen and examined. He denied any new symptoms or complaints.
Objective Data
-
Labs:
Laboratory Results
08/30/24
06:34
WBC 8.8
Hgb 12.2 L
Hct 35.1 L
Plt Count 271
Sodium Pending
Potassium Pending
Chloride Pending
Carbon Dioxide Pending
BUN Pending
Creatinine Pending
Glucose Pending
Calcium Pending
Total Bilirubin Pending
AST Pending
ALT Pending
Alkaline Phosphatase Pending
Vital Signs:
Vital Signs
Temp Pulse Resp BP Pulse Ox
97.4 F 72 16 129/83 98
08/30/24 03:27 08/30/24 03:27 08/30/24 03:27 08/30/24 03:27 08/30/24 03:27
I&O
08/29/24 08/30/24 08/31/24
06:59 06:59 06:59
Intake Total 1000 / 1420 420 / 420
Output Total 450 / 900 450 / 450
Balance 550 / 520 -30 / -30
[2024-08-30 07:17] LABS: ALT (SGPT) 22 U/L (0-50); AST (SGOT) 31 U/L (17-59); Albumin 4.2 g/dl (3.5-5.0); Alkaline Phosphatase 68 U/L (38-126); Blood Urea Nitrogen 5 mg/dl (9-20); Calcium 9.5 mg/dl (8.4-10.2); Carbon Dioxide 27 mmol/L (22-30); Chloride 101 mmol/L (98-107); Estimated Creatinine Clearance 94 ml/min; Glucose 90 mg/dl (70-99); Magnesium 1.7 mg/dl (1.6-2.3); Potassium 4.6 mmol/L (3.5-5.1); Sodium 137 mmol/L (135-145); Total Bilirubin 0.5 mg/dl (0.2-1.3); Total Protein 6.6 g/dl (6.3-8.2); eGFR > 60.00
[2024-08-30] MEDS: PROTONIX 40 MG PO (09:20)
[2024-08-30] MEDS: TENORMIN 50 MG PO (09:20)
[2024-08-30] MEDS: AUGMENTIN 875 MG/125 MG 1 TABLET PO ×2 (09:22→20:40)
[2024-08-30] MEDS: LIPITOR 10 MG PO (09:23)
[2024-08-30] MEDS: ASPIR LOW (ENTERIC COATED) 81 MG PO (09:23)
[2024-08-30] MEDS: PROSCAR 5 MG PO (09:23)
[2024-08-30] MEDS: THERAGRAN 1 TABLET PO (09:23)
[2024-08-30] MEDS: KEPPRA 500 MG IV ×2 (09:23→20:43)
[2024-08-30] MEDS: NICODERM TRANSDERMAL 14 MG TRANSDERM (09:24)
[2024-08-30] MEDS: LUMINAL 64.8 MG PO ×3 (09:24→22:03)
[2024-08-30] MEDS: FOLVITE 1 MG PO (09:27)
[2024-08-30 11:00] VITALS: BP 128/83
[2024-08-30 15:00] VITALS: BP 112/65
[2024-08-30] MEDS: LOVENOX 40 MG SC (16:54)
[2024-08-30 19:50] VITALS: BP 116/70
[2024-08-30] MEDS: VITAMIN B1 100 MG PO (20:41)
[2024-08-30 21:40] LABS: Albumin 3.95 g/dL (3.75-5.01); Alpha 1 Globulin 0.37 g/dL (0.19-0.46); Alpha 2 Globulin 0.67 g/dL (0.48-1.05); SPEP IFE Reflex Not Done; Total Protein-Electrophoresis 6.8 g/dL (6.3-8.2)
[2024-08-30 23:24] VITALS: BP 126/80
[2024-08-31 03:40] VITALS: BP 125/85
[2024-08-31 07:00] VITALS: BP 139/95
[2024-08-31 07:48] LABS: % Basophils 0.9 % (0-2); % Immature Granulocytes 0.4 % (0-0.5); % Lymphocytes 25.1 % (20.5-51.1); % Monocytes 9.7 % (1.7-9.3); % Neutrophils 60.9 % (42.2-75.2); Absolute Basophils 0.1 10^3/uL (0-0.2); Absolute Eosinophils 0.3 10^3/uL (0-0.7); Absolute Lymphocytes 2.4 10^3/uL (1.2-3.4); Absolute Monocytes 0.9 10^3/uL (0.1-0.6); Absolute Neutrophils 5.7 10^3/uL (1.4-6.5); Hematocrit 36.5 % (39.0-52.0); Hemoglobin 12.4 g/dL (13.0-18.0); Mean Corpuscular Hgb 32.5 pg (27.0-31.0); Mean Corpuscular Volume 95.5 fL (80.0-94.0); Mean Platelet Volume 8.6 fL (7.4-10.4); Nucleated Red Blood Cells % 0 % (-); Platelet Count 296 10^3/uL (130-400); Red Blood Cell Count 3.82 10^6/uL (4.70-6.10); Red Cell Dist. Width 13.3 % (11.5-14.5); White Blood Cell Count 9.4 10^3/uL (4.8-10.8)
[2024-08-31 08:10] LABS: ALT (SGPT) 25 U/L (0-50); AST (SGOT) 31 U/L (17-59); Albumin 4.4 g/dl (3.5-5.0); Alkaline Phosphatase 63 U/L (38-126); Blood Urea Nitrogen 9 mg/dl (9-20); Calcium 9.4 mg/dl (8.4-10.2); Carbon Dioxide 26 mmol/L (22-30); Chloride 100 mmol/L (98-107); Estimated Creatinine Clearance 82 ml/min; Glucose 128 mg/dl (70-99); Magnesium 1.6 mg/dl (1.6-2.3); Sodium 137 mmol/L (135-145); Total Bilirubin 0.5 mg/dl (0.2-1.3); Total Protein 6.7 g/dl (6.3-8.2); eGFR > 60.00
[2024-08-31] MEDS: THERAGRAN 1 TABLET PO (09:16)
[2024-08-31] MEDS: TENORMIN 50 MG PO (09:17)
[2024-08-31] MEDS: PROTONIX 40 MG PO (09:17)
[2024-08-31] MEDS: LIPITOR 10 MG PO (09:17)
[2024-08-31] MEDS: NICODERM TRANSDERMAL 14 MG TRANSDERM (09:18)
[2024-08-31] MEDS: AUGMENTIN 875 MG/125 MG 1 TABLET PO ×2 (09:18→19:53)
[2024-08-31] MEDS: LUMINAL 64.8 MG PO ×2 (09:18→16:30)
[2024-08-31] MEDS: KEPPRA IV (09:19)
[2024-08-31] MEDS: ASPIR LOW (ENTERIC COATED) 81 MG PO (09:19)
[2024-08-31] MEDS: PROSCAR 5 MG PO (09:19)
[2024-08-31] MEDS: FOLVITE 1 MG PO (09:19)
[2024-08-31] MEDS: VITAMIN B1 PO (09:20)
--- NOTE | 2024-08-31 10:06 | W.PN.HOSP.TC ---
Today's Communication/Plan
-
d/w neurology today, c/w Keppra
Resume amlodipine
Assessment / Plan
Assessment / Plan
Physical Exam
General: No Apparent Distress, Comfortable and Conversant
HEENT: Normocephalic and Moist mucous membranes
Respiratory: Clear
Cardiac: S1/S2 and Regular Rhythm
GI: Soft, Non Tender and Normal Bowel Sounds
Musculoskeletal: No Cyanosis and No Edema
Skin: Warm and Dry
Neuro: Awake, Alert, Oriented, AO x 3, No Motor Deficits, gait is normal, no tremor.
Psych: Calm and Intact Judgment/Insight
Assessment/Plan
Presentation with Unresponsiveness/Eye Staring/Head Shaking Likely Secondary to Alcohol Withdrawal Seizures
Seizures -- one here in the emergency department and one suspected one prior to arrival
Suspected Delirium Tremens
Chronic benzodiazepine use
Stable, no sizures.
-Suspected alcohol withdrawal seizure
-Ativan 4 mg given in the emergency department with good response, repeat every 15 to 20 minutes as needed
-Intravenous Phenobarbital taper regimen ordered -- continue
-Initially, ICU admission given high risk of needing intubation --> then did better and was stable for transfer to telemetry as discussed with business services administrator
-Neurology consulted given 2nd suspected second episode of seizure on day of presentation, to check for any other possible etiology
-MRI brain with no acute changes or significant abnormalities
-EEG normal
-Per neurology, continue Keppra 500 mg twice daily and Ativan 2 mg as needed
I asked Dr Barros 08/31 if patient needs to c/w anti-seizure medication since seizures were alcohol withdraw seizure and she said to continue Keppra and leave that decision to OP follow up. .
-Patient says he takes Xanax everyday
#Alcohol Use Disorder
-Patient drinks alcohol heavily, multiple cans of beer, and his last drink was 2-3 days ago
-Continue alcohol withdrawal protocol
-Thiamine
-Folic Acid
-Multivitamin
RLL aspiration pneumonia
No cough, no hypoxia, stop Augmentin on 09/02
Leukocytosis - RESOLVED
#Macrocytic Anemia
-Suspected from alcohol use
-Vitamin B12 level high
#History of Allergic Reaction to Lisinopril
#Mild Rhabdomyolysis due to seizures
-CK 350 --> 701 --> 391
Normal renal fuction
-Normal Saline IV fluids previously given
# Hyponatremia, resolved
#Primary hypertension
SBP 139
c/w Atenolol
-Resume Amlodipine
#Hyperlipidemia
-Hold home statin for now, elevated CK, resume upon dc
#Benign Prostatic Hypertrophy
-on Finasteride for now
-Bladder Scans, no retention
DVT Prophylaxis: Lovenox and SCDs
Code Status: Full Code
Total time spent to see the pt, examine the pt, review data and lab results, discuss treatment plan with pt and nursing staff around 55 minutes
Anticipated Discharge: 24 - 48 hours
Subjective/Interval History
-
Date of Service: August 31, 2024
he is feeling well
No confusion, sometimes forgetful
No pain issues
Objective Data
-
Labs:
Laboratory Results
08/31/24
06:11
WBC 9.4
Hgb 12.4 L
Hct 36.5 L
Plt Count 296
Sodium 137
Potassium 4.0
Chloride 100
Carbon Dioxide 26
BUN 9
Creatinine 0.8
Glucose 128 H
Calcium 9.4
Total Bilirubin 0.5
AST 31
ALT 25
Alkaline Phosphatase 63
Vital Signs:
Vital Signs
Temp Pulse Resp BP Pulse Ox
97.9 F 80 18 139/65 94
08/31/24 07:00 08/31/24 09:17 08/31/24 07:00 08/31/24 09:17 08/31/24 07:00
I&O
08/30/24 08/31/24 09/01/24
06:59 06:59 06:59
Intake Total 420 / 420 960 / 960
Output Total 450 / 450
Balance -30 / -30 960 / 960
[2024-08-31] MEDS: NORVASC 5 MG PO (11:47)
[2024-08-31] MEDS: KEPPRA 500 MG PO ×2 (11:48→19:53)
[2024-08-31 15:00] VITALS: BP 108/77
[2024-08-31] MEDS: LOVENOX 40 MG SC (16:30)
[2024-08-31 19:47] VITALS: BP 128/79
[2024-08-31] MEDS: VITAMIN B1 100 MG PO (19:53)
[2024-08-31] MEDS: LUMINAL 32.4 MG PO (21:25)
[2024-08-31] MEDS: XANAX 0.5 MG PO (21:27)
[2024-08-31 23:21] VITALS: BP 123/88
[2024-09-01 03:26] VITALS: BP 119/81
[2024-09-01 07:00] VITALS: BP 127/89
[2024-09-01] MEDS: TENORMIN 50 MG PO (07:25)
[2024-09-01] MEDS: NICODERM TRANSDERMAL 14 MG TRANSDERM (07:26)
[2024-09-01] MEDS: PROSCAR 5 MG PO (07:26)
[2024-09-01] MEDS: LUMINAL 32.4 MG PO ×3 (07:26→21:30)
[2024-09-01] MEDS: PROTONIX 40 MG PO (07:27)
[2024-09-01] MEDS: VITAMIN B1 100 MG PO ×2 (07:27→19:47)
[2024-09-01] MEDS: NORVASC 5 MG PO (07:27)
[2024-09-01] MEDS: AUGMENTIN 875 MG/125 MG 1 TABLET PO ×2 (07:27→19:47)
[2024-09-01] MEDS: FOLVITE 1 MG PO (07:27)
[2024-09-01] MEDS: ASPIR LOW (ENTERIC COATED) 81 MG PO (07:28)
[2024-09-01] MEDS: LIPITOR 10 MG PO (07:28)
[2024-09-01] MEDS: KEPPRA 500 MG PO ×2 (07:28→19:47)
[2024-09-01] MEDS: THERAGRAN 1 TABLET PO (07:28)
--- NOTE | 2024-09-01 09:23 | W.PN.HOSP.TC ---
Today's Communication/Plan
-
dc planning
Pt wants to go to talk to telehealth case manager to go to rehab
Assessment / Plan
Assessment / Plan
Physical Exam
General: No Apparent Distress, Comfortable and Conversant
HEENT: Normocephalic and Moist mucous membranes
Respiratory: Clear
Cardiac: S1/S2 and Regular Rhythm
GI: Soft, Non Tender and Normal Bowel Sounds
Musculoskeletal: No Cyanosis and No Edema
Skin: Warm and Dry
Neuro: Awake, Alert, Oriented, AO x 3, No Motor Deficits, gait is normal, no tremor.
Psych: Calm and Intact Judgment/Insight
Assessment/Plan
Presentation with Unresponsiveness/Eye Staring/Head Shaking Likely Secondary to Alcohol Withdrawal Seizures
Seizures -- one here in the emergency department and one suspected one prior to arrival
Suspected Delirium Tremens
Chronic benzodiazepine use
Stable, no sizures.
-Suspected alcohol withdrawal seizure
-Ativan 4 mg given in the emergency department with good response, repeat every 15 to 20 minutes as needed
-Intravenous Phenobarbital taper regimen ordered -- continue
-Initially, ICU admission given high risk of needing intubation --> then did better and was stable for transfer to telemetry as discussed with jewel sorter
-Neurology consulted given 2nd suspected second episode of seizure on day of presentation, to check for any other possible etiology
-MRI brain with no acute changes or significant abnormalities
-EEG normal
-Per neurology, continue Keppra 500 mg twice daily and Ativan 2 mg as needed
I asked Dr Barros 08/31 if patient needs to c/w anti-seizure medication since seizures were alcohol withdraw seizure and she said to continue Keppra and leave that decision to OP follow up. .
-Patient says he takes Xanax everyday
#Alcohol Use Disorder
-Patient drinks alcohol heavily, multiple cans of beer, and his last drink was 2-3 days ago
-Continue alcohol withdrawal protocol
-Thiamine
-Folic Acid
-Multivitamin
RLL aspiration pneumonia
No cough, no hypoxia, stop Augmentin on 09/02
Leukocytosis - RESOLVED
#Macrocytic Anemia
-Suspected from alcohol use
-Vitamin B12 level high
#History of Allergic Reaction to Lisinopril
#Mild Rhabdomyolysis due to seizures
-CK 350 --> 701 --> 391
Normal renal fuction
-Normal Saline IV fluids previously given
# Hyponatremia, resolved
#Primary hypertension
SBP 139
c/w Atenolol
-Resume Amlodipine
#Hyperlipidemia
-Hold home statin for now, elevated CK, resume upon dc
#Benign Prostatic Hypertrophy
-on Finasteride for now
-Bladder Scans, no retention
DVT Prophylaxis: Lovenox and SCDs
Code Status: Full Code
Total time spent to see the pt, examine the pt, review data and lab results, discuss treatment plan with pt and nursing staff around 55 minutes
Anticipated Discharge: Within 24 hours
Subjective/Interval History
-
Date of Service: September 01, 2024
Feels much better , no pain issues
No worsening confusion
Objective Data
-
Vital Signs:
Vital Signs
Temp Pulse Resp BP Pulse Ox
97.7 F 88 18 127/89 97
09/01/24 07:00 09/01/24 07:25 09/01/24 07:00 09/01/24 07:25 09/01/24 07:00
I&O
08/31/24 09/01/24 09/02/24
06:59 06:59 06:59
Intake Total 960 / 960 220 / 220
Balance 960 / 960 220 / 220
--- NOTE | 2024-09-01 10:38 | CM ---
Addendum entered by Kristian Matta 09/01/24 15:15:
Per Ruel, patient is moving forward w/ inpatient treatment. Will need [facility] funding, patient's spouse will provide needed documentation to complete this.
Requesting for CM to send clinicals to [facility] as they have available beds. CM faxed clinicals to [phone].
CM to follow up w/ Ruel tomorrow for updates
Original Note:
Chart reviewed. Patient agreeable to [facility] assistance and coordination for IP D&A rehab. Per hospitalist, patient will be ready for d/c tomorrow.
CM spoke w/ Ruel/[facility] who stated he will come and see patient in the next hour to discuss and review a plan for d/c
Met w/ patient and daughter bedside to confirm [facility] will assist w/ d/c plan for IP rehab. Per daughter, she does have a list of a few places and can discuss w/ Ruel once he arrives.
Plan: IP or outpatient D&A treatment. [facility] following
[2024-09-01 11:00] VITALS: BP 123/83
[2024-09-01 15:00] VITALS: BP 134/87
[2024-09-01] MEDS: LOVENOX 40 MG SC (16:08)
[2024-09-01 19:37] VITALS: BP 140/85
[2024-09-01 23:30] VITALS: BP 135/80
[2024-09-02 07:00] VITALS: BP 141/97
[2024-09-02] MEDS: THERAGRAN 1 TABLET PO (07:49)
[2024-09-02] MEDS: ASPIR LOW (ENTERIC COATED) 81 MG PO (07:49)
[2024-09-02] MEDS: VITAMIN B1 100 MG PO (07:49)
[2024-09-02] MEDS: PROTONIX 40 MG PO (07:50)
[2024-09-02] MEDS: LIPITOR 10 MG PO (07:50)
[2024-09-02] MEDS: TENORMIN 50 MG PO (07:50)
[2024-09-02] MEDS: AUGMENTIN 875 MG/125 MG 1 TABLET PO (07:50)
[2024-09-02] MEDS: NORVASC 5 MG PO (07:50)
[2024-09-02] MEDS: KEPPRA 500 MG PO (07:50)
[2024-09-02] MEDS: FOLVITE 1 MG PO (07:51)
[2024-09-02] MEDS: PROSCAR 5 MG PO (07:51)
[2024-09-02] MEDS: NICODERM TRANSDERMAL 14 MG TRANSDERM (07:52)
[2024-09-02] MEDS: LUMINAL 32.4 MG PO (07:57)
--- NOTE | 2024-09-02 11:05 | W.PN.HOSP.TC ---
Today's Communication/Plan
-
discharge
Assessment / Plan
Assessment / Plan
Physical Exam
General: No Apparent Distress, Comfortable and Conversant
HEENT: Normocephalic and Moist mucous membranes
Respiratory: Clear
Cardiac: S1/S2 and Regular Rhythm
GI: Soft, Non Tender and Normal Bowel Sounds
Musculoskeletal: No Cyanosis and No Edema
Skin: Warm and Dry
Neuro: Awake, Alert, Oriented, AO x 3, No Motor Deficits, gait is normal, no tremor.
Psych: Calm and Intact Judgment/Insight
Assessment/Plan
Presentation with Unresponsiveness/Eye Staring/Head Shaking Likely Secondary to Alcohol Withdrawal Seizures
Seizures -- one here in the emergency department and one suspected one prior to arrival
Suspected Delirium Tremens
Chronic benzodiazepine use
Stable, no sizures.
Alcohol withdrawal seizure
No recurrent seizures. No tremor
-MRI brain with no acute changes or significant abnormalities
-EEG normal
-Per neurology, continue Keppra 500 mg twice daily and Ativan 2 mg as needed
I asked Dr Barros 08/31 if patient needs to c/w anti-seizure medication since seizures were alcohol withdraw seizure and she said to continue Keppra and leave that decision to OP follow up. .
-Patient feels he does not need Xanax at night.
#Alcohol Use Disorder
finished treatment with Phenobarbital.
-MSAS is 0 since 08/27.
-Thiamine
-Folic Acid
-Multivitamin
RLL aspiration pneumonia
No cough, no hypoxia, stop Augmentin on 09/02
Leukocytosis - RESOLVED
#Macrocytic Anemia
-From alcohol use
-Vitamin B12 level high
#History of Allergic Reaction to Lisinopril
#Mild Rhabdomyolysis due to seizures
-CK 350 --> 701 --> 391
Normal renal fuction
# Hyponatremia, resolved
#Primary hypertension
SBP 139
c/w Atenolol
-Resumed Amlodipine.
#Hyperlipidemia
-Hold home statin for now, elevated CK, resume upon dc
#Benign Prostatic Hypertrophy
-on Finasteride for now
-Bladder Scans, no retention
DVT Prophylaxis: Lovenox and SCDs
Code Status: Full Code
Discharge planning, discussed with patient and case manager specialist. Patient wants to go to rehab. industrial production manager is working with patient and to discharge to rehab. Will follow
Total discharge time spent to see the pt, examine the pt, review data and lab results, discuss discharge plan with pt and nursing staff around 69 minutes
Anticipated Discharge: Today
Subjective/Interval History
-
Date of Service: September 02, 2024
No chest pain
No abdominal pain
No sob
No confusion or tremor
Objective Data
-
Vital Signs:
Vital Signs
Temp Pulse Resp BP Pulse Ox
97.7 F 95 20 141/97 99
09/02/24 07:00 09/02/24 07:00 09/02/24 07:00 09/02/24 07:00 09/02/24 07:55
I&O
09/01/24 09/02/24 09/03/24
06:59 06:59 06:59
Intake Total 220 / 220 1140 / 1140
Balance 220 / 220 1140 / 1140
--- NOTE | 2024-09-02 12:52 | CM ---
Addendum entered by Ana Luisa Greene 09/02/24 13:59:
Patient accepted at [facility]. will provide transport. IMM verbally reviewed, provided with copy, placed in chart.
Plan; [facility]

Original Note:
CM reviewed chart, reviewed with nurse and Ruel from [facility], additional clinical information faxed to [facility], awaiting acceptance. Per Ruel, patients will provide transportation to facility. Update to Physician. CM will continue to
follow for all discharge planning needs.
Plan; awaiting acceptance at [facility] for inpatient rehab
[2024-09-02 15:15] VITALS: BP 138/82
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
[2024-09-02] MEDS: LOVENOX SC (15:21)
== END 2024-09-02 16:44 | DRG 896 ==
LOC: 4 WEST ACU 12:39
PROVIDERS: ADMITTING PHYSICIAN Hospitalist; ATTENDING PHYSICIAN Internal Medicine; CONSULT PHYSICIAN Internal Medicine Critical Care Medicine; CONSULT PHYSICIAN Psychiatry & Neurology Neurology; EMERGENCY PHYSICIAN Emergency Medicine; FAMILY PHYSICIAN Family Medicine
DX: F10.131 Alcohol abuse with withdrawal delirium (principal); G92.8 Other toxic encephalopathy; J69.0 Pneumonitis due to inhalation of food and vomit; E87.1 Hypo-osmolality and hyponatremia; M62.82 Rhabdomyolysis; F17.200 Nicotine dependence, unspecified, uncomplicated; G40.909 Epilepsy, unspecified, not intractable, without status epilepticus; Z79.899 Other long term (current) drug therapy; F41.9 Anxiety disorder, unspecified; Z79.82 Long term (current) use of aspirin; I10 Essential (primary) hypertension; K21.9 Gastro-esophageal reflux disease without esophagitis; N40.0 Benign prostatic hyperplasia without lower urinary tract symptoms; E78.00 Pure hypercholesterolemia, unspecified; D64.9 Anemia, unspecified
CPT/HCPCS: 36600; 70450; 70551; 71045; 80053; 80306; 80307; 81003; 81015; 82077; 82140; 82550; 82607; 82746; 82805; 82962; 83735; 84100; 84155; 84165; 84443; 84484; 85025; 87086; 92610; 93005; 95816; 96374; 99285

== ENCOUNTER → 2024-10-06 06:22 | Outpatient (REF) | payer MEDICARE, OTHER, SELFPAY ==
[2024-10-06 10:16] LABS: % Basophils 0.8 % (0-2); % Eosinophils 2.9 % (0-6); % Immature Granulocytes 0.3 % (0-0.5); % Lymphocytes 26.8 % (20.5-51.1); % Monocytes 8.8 % (1.7-9.3); % Neutrophils 60.4 % (42.2-75.2); Absolute Basophils 0.1 10^3/uL (0-0.2); Absolute Eosinophils 0.3 10^3/uL (0-0.7); Absolute Lymphocytes 2.5 10^3/uL (1.2-3.4); Absolute Monocytes 0.8 10^3/uL (0.1-0.6); Absolute Neutrophils 5.6 10^3/uL (1.4-6.5); Hematocrit 40.2 % (39.0-52.0); Hemoglobin 13.1 g/dL (13.0-18.0); Mean Corp Hgb Conc. 32.6 g/dL (33.0-37.0); Mean Corpuscular Hgb 31.7 pg (27.0-31.0); Mean Corpuscular Volume 97.3 fL (80.0-94.0); Mean Platelet Volume 9.1 fL (7.4-10.4); Nucleated Red Blood Cells % 0 % (-); Platelet Count 317 10^3/uL (130-400); Red Blood Cell Count 4.13 10^6/uL (4.70-6.10); Red Cell Dist. Width 13.2 % (11.5-14.5); White Blood Cell Count 9.3 10^3/uL (4.8-10.8)
[2024-10-06 10:36] LABS: ALT (SGPT) 20 U/L (0-50); AST (SGOT) 23 U/L (17-59); Albumin 4.1 g/dl (3.5-5.0); Alkaline Phosphatase 58 U/L (38-126); Blood Urea Nitrogen 20 mg/dl (9-20); Calcium 9.2 mg/dl (8.4-10.2); Carbon Dioxide 28 mmol/L (22-30); Chloride 106 mmol/L (98-107); Glucose 96 mg/dl (70-99); HDL Cholesterol 38 mg/dl; LDL Cholesterol, Calculated 85 mg/dl; Potassium 4.3 mmol/L (3.5-5.1); Sodium 142 mmol/L (135-145); Total Bilirubin 0.4 mg/dl (0.2-1.3); Total Cholesterol 141 mg/dl (50-199); Total Protein 6.8 g/dl (6.3-8.2); Triglyceride 93 mg/dl (10-149); Very Low Density Lipoprotein 18 mg/dl (0-30); eGFR > 60.00
[2024-10-06 10:57] LABS: TSH 1.39 uIU/ml (0.47-4.68)
[2024-10-06 11:36] LABS: PSA, Total - Diagnostic 4.49 ng/ml (0.0-4.0)
== END ==
LOC: HWLAB 06:22
PROVIDERS: ATTENDING PHYSICIAN Specialist; FAMILY PHYSICIAN Family Medicine
DX: R97.20 Elevated prostate specific antigen [PSA] (principal); R35.0 Frequency of micturition; E03.9 Hypothyroidism, unspecified; I10 Essential (primary) hypertension; E78.5 Hyperlipidemia, unspecified; R53.83 Other fatigue
CPT/HCPCS: 36415; 80053; 80061; 84153; 84443; 85025

== ENCOUNTER → 2024-10-09 13:11 | Outpatient (REF) | payer MEDICARE, OTHER, SELFPAY | LOC: HWRAD 13:11 | PROVIDERS: ATTENDING PHYSICIAN Family Medicine | DX: Z87.891 Personal history of nicotine dependence (principal) | CPT/HCPCS: 71271 ==

== ENCOUNTER → 2025-01-09 06:33 | Outpatient (REF) | payer MEDICARE, OTHER, SELFPAY | LOC: HWRAD 06:33 | PROVIDERS: ATTENDING PHYSICIAN Nurse Practitioner Family | DX: N13.2 Hydronephrosis with renal and ureteral calculous obstruction (principal); N02.0 Recurrent and persistent hematuria with minor glomerular abnormality | CPT/HCPCS: 74018 ==

== ENCOUNTER → 2025-02-06 06:32 | Outpatient (REF) | payer MEDICARE, OTHER, SELFPAY | LOC: MRI 06:32 | PROVIDERS: ATTENDING PHYSICIAN Family Medicine | DX: M85.80 Other specified disorders of bone density and structure, unspecified site (principal) | CPT/HCPCS: 72146 ==